=== PATIENT | female | born 1980 | race Caucasian/White ===

== ENCOUNTER 2017-08-24 22:41 | Emergency (ER) | payer OTHER ==
[2017-08-24] MEDS ORDERED: TORAdol 30 mg Injection IM ONE (23:02)
[2017-08-24] MEDS ORDERED: Norflex 60 MG/2 ML IM ONE (23:03)
[2017-08-24] MEDS ORDERED: Norflex 60 MG/2 ML ONE (23:07)
[2017-08-24] MEDS ORDERED: TORAdol 30 mg Injection ONE (23:07)
--- NOTE | 2017-08-24 23:10 | ERPHSYRPT ---
- History of Present Illness Time Seen by Provider: 08/24/17 23:03 Source: patient Exam Limitations: no limitations Patient Subjective Stated Complaint: Neck Pain Triage Nursing Assessment: Pt presents to the ED with complaints of neck pain x2 days. Pt states she was unable to go to work due to pain. Pt states there is nothing that makes pain better or worse. Pt denies other complaints. Pt is A&O x4, no distress noted. Physician History: 36-year-old female came to the emergency room with complaining of right upper neck pain nearby scapular area for last 2 days. Patient states that she has this problem recurrent off and on for last few years. Patient denies any tingling or numbness in her upper extremity as well. Denies any shortness of breath, cough, chills, fever. 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 Timing/Duration: day(s) (2 days) Associated Symptoms: denies symptoms Allergies/Adverse Reactions: nifedipine [From Procardia] Allergy (Intermediate, Verified 08/24/17 22:55) Swelling Home Medications: Alprazolam 0.5 mg [xanAX 0.5 MG] 0.5 mg PO TID 08/24/17 [History] Buspirone HCl 15 mg PO TID 08/24/17 [History] Ergocalciferol (Vitamin D2) [Vitamin D2] 1 tab PO WEEKLY 08/24/17 [History] Levothyroxine Sodium 50 Mcg [Synthroid 50 Mcg] 50 mcg PO DAILY 08/24/17 [ History] Hx Tetanus, Diphtheria Vaccination/Date Given: Yes Hx Influenza Vaccination/Date Given: Yes Hx Pneumococcal Vaccination/Date Given: No Immunizations Up to Date: No - Review of Systems Constitutional: No Fever, No Chills Eyes: No Symptoms Ears, Nose, & Throat: No Symptoms Respiratory: No Cough, No Dyspnea Cardiac: No Chest Pain, No Edema, No Syncope Abdominal/Gastrointestinal: No Abdominal Pain, No Nausea, No Vomiting, No Diarrhea Genitourinary Symptoms: No Dysuria Musculoskeletal: Neck Pain, No Back Pain Skin: No Rash Neurological: No Dizziness, No Focal Weakness, No Sensory Changes Psychological: No Symptoms Endocrine: No Symptoms All Other Systems: Reviewed and Negative - Past Medical History Pertinent Past Medical History: Yes Neurological History: No Pertinent History ENT History: No Pertinent History Cardiac History: No Pertinent History Respiratory History: No Pertinent History Endocrine Medical History: Hyperthyroidism Musculoskeletal History: No Pertinent History GI Medical History: No Pertinent History History: No Pertinent History Psycho-Social History: Anxiety, Depression Female Reproductive Disorders: No Pertinent History - Past Surgical History Past Surgical History: Yes Neuro Surgical History: No Pertinent History Cardiac: No Pertinent History Respiratory: No Pertinent History Gastrointestinal: No Pertinent History Genitourinary: No Pertinent History Musculoskeletal: No Pertinent History Female Surgical History: No Pertinent History Other Surgical History: Partial thyroid removal. - Social History Smoking Status: Never smoker Exposure to second hand smoke: Yes Drug Use: none Patient Lives Alone: No - Female History Hx Last Menstrual Period: 08/09/2017 Hx Now: No - Nursing Vital Signs Nursing Vital Signs: Initial Vital Signs Temperature 97.8 F 08/24/17 22:45 Pulse Rate 62 08/24/17 22:45 Respiratory Rate 16 08/24/17 22:45 Blood Pressure 114/92 08/24/17 22:45 O2 Sat by Pulse Oximetry 99 08/24/17 22:45 Pain Scale Pain Intensity 5 - Physical Exam General Appearance: no apparent distress, alert Eye Exam: PERRL/EOMI, eyes nml inspection Ears, Nose, Throat Exam: normal ENT inspection, TMs normal, pharynx normal, moist mucous membranes Neck Exam: normal inspection, non-tender, supple, full range of motion Respiratory Exam: normal breath sounds, lungs clear, No respiratory distress Cardiovascular Exam: regular rate/rhythm, normal heart sounds, normal peripheral pulses Gastrointestinal/Abdomen Exam: soft, normal bowel sounds, No tenderness, No mass Back Exam: normal inspection, normal range of motion, muscle spasm (upper right back and neck), No CVA tenderness, No vertebral tenderness Extremity Exam: normal inspection, normal range of motion, pelvis stable Neurologic Exam: alert, oriented x 3, cooperative, normal mood/affect, nml cerebellar function, nml station & gait, sensation nml, No motor deficits Skin Exam: normal color, warm, dry, No rash Lymphatic Exam: No adenopathy SpO2: 99 Oxygen Delivery: Room Air - Course Nursing assessment & vital signs reviewed: Yes Ordered Tests: Medication Summary Generic Name Dose Route Start Last Admin Trade Name Freq PRN Reason Stop Dose Admin Orphenadrine Citrate 60 mg 08/24/17 23:03 Norflex 60 Mg/2 Ml IM 08/24/17 23:04 STAT ONE Discontinued Medications Generic Name Dose Route Start Last Admin Trade Name Harsh MOREIRAN Reason Stop Dose Admin Ketorolac Tromethamine 60 mg 08/24/17 23:02 Toradol 30 Mg Injection IM 08/24/17 23:03 STAT ONE - Progress Progress: improved, pain not gone completely Counseled pt/family regarding: diagnosis, need for follow-up - Departure Time of Disposition: 23:06 Departure Disposition: Home Clinical Impression: Cervical back pain with evidence of disc disease Condition: Stable Critical Care Time: No Referrals: MARTY RAY [ACTIVE STAFF] - Instructions: Neck Pain, Cervical Muscle Strain, Cervical Muscle Strain (DC), Chronic Neck Pain (DC), Generalized Neck Pain, Generalized Neck Pain (DC) Additional Instructions: MARILAW was seen on 08/24/17 n the Emergency Room. At that time you were treated for an emergent condition, during your visit Laboratory, Radiology and/ or other procedures may have been ordered. It is very important that you follow- up with your Primary Care Physician within the next 24-48 hours to review your Emergency Room visit and the final results of testing that was ordered. Some test results such as Urine Cultures, Blood Cultures, and other cultures if ordered will not be finalized for 24-48 hours. If you do not have a Primary Care Provider please call the medical records department at [phone] to obtain a copy of your results or you may sign into our patient portal to obtain these results by visiting us @ [email or web address] and completing the following steps: 1. Click on the Patient Portal link 2. Click the Patient Self Enrollment Link to complete the enrollment form and entering your 3. Once the enrollment form is completed you will receive an email with a temporary ID and password at the email address you provided. 4. Next choose a user name and password. Your user name must be at least 4 characters long and your password must be at least 4 characters long. 5. Choose a security question from the list and provide your answer to the question. If you already have signed into the Health Portal you may access your Health Care Information 15/01 by the following steps: 1. Login to our website @ [email or web address] 2. Enter your original user name and password. FAQS The [facility] Health Portal is an online tool that contains your Lab Results, Radiology Reports, Visit History, Discharge Instructions and Health Summary Lab and Radiology Results will not be available for 72 hours on the portal. The Portal is a secure site, passwords are encryted and URLs are re-written so they cannot be copied and pasted. You and authorized family members are the only ones who can access your Portal. Also there is a timeout feature that protects your information if you leave the Portal page open. If you have technical difficulty please use the Contact Us link on the page this will allow you to submit any questions you have regarding the Portal or you may contact the Medical Record Department at [phone]. SPRAINS/STRAINS/CONTUSIONS 1. Rest the affected area as much as possible for the next few days. 2. Apply ice to the affected area for 20-30 minutes at a time, several times a day. 3. If you receive an elastic wrap, wear it only while awake for comfort and support. Re-wrap the elastic wrap if it feels too tight or too loose. 4. If swelling is present, elevate the affected part above the level of the heart for at least 2 to 3 days. 5. Use splints, slings, or crutches as instructed. 6. Watch for severe swelling, coldness, numbness, and discoloration of the fingers and toes. See your family physician or return to the emergency department if any of these are noted. Prescriptions: Etodolac 400 mg [Lodine 400 mg] 400 mg PO BID #20 tablet Orphenadrine Citrate 100 mg [Norflex 100 MG Tablet] 100 mg PO BID #15 tab
[2017-08-24 23:30] VITALS: BP 112/87; PULSE 60; O2SAT 98
== END 2017-08-24 23:30 | disposition home or self-care (01) ==
LOC: ED 22:41
DX: M54.2 Cervicalgia (principal); M50.90 Cervical disc disorder, unspecified, unspecified cervical region
CPT/HCPCS: 96372; 99284; J1885; J2360

== ENCOUNTER 2017-09-04 05:53 | Emergency (ER) | payer OTHER ==
[2017-09-04 06:17] VITALS: BP 116/77; PULSE 80; O2SAT 97
--- NOTE | 2017-09-04 06:35 | ERPHSYRPT ---
- History of Present Illness Time Seen by Provider: 09/04/17 06:20 Source: patient Exam Limitations: no limitations Patient Subjective Stated Complaint: pt states she has had an increase in neck pain this morning and is now radiating down her back Triage Nursing Assessment: pt alert and oriented, answers questions approp. pt ambulatory with steady gait noted, respriations nonlabored with lungs cta. skin pink warm and dry. strength in bilat upper and lower ext wnl. Physician History: FOR THE PAST 6 DAYS PT HAS HAD NECK PAIN RADIATING DOWN THE BACK WITHOUT RECENT TRAUMA. PT WAS PLACED ON CYMBALTA 5 DAYS AGO BUT SHAKES, HAS NAUSEA AND FEELS TIRED AFTER TAKING IT. PT STATES SHE HAS HAD CHRONIC NECK AND BACK PAIN SINCE CHILDHOOD AND HAS HAD NORMAL MRI'S OF THE NECK AND BACK WITHIN THE PAST 5 YEARS. PT DENIES FEVER, CHEST PAIN, SHORTNESS OF AIR, WEAKNESS. Allergies/Adverse Reactions: nifedipine [From Procardia] Allergy (Intermediate, Verified 09/04/17 06:17) Swelling Home Medications: Alprazolam 0.5 mg [xanAX 0.5 MG] 0.5 mg PO TID 08/24/17 [History] Buspirone HCl 15 mg PO TID 08/24/17 [History] Ergocalciferol (Vitamin D2) [Vitamin D2] 1 tab PO WEEKLY 08/24/17 [History] Levothyroxine Sodium 50 Mcg [Synthroid 50 Mcg] 50 mcg PO DAILY 08/24/17 [ History] Duloxetine HCl 30 mg [Cymbalta 30 MG Capsule] 30 mg PO DAILY 09/04/17 [ History] Hx Tetanus, Diphtheria Vaccination/Date Given: Yes Hx Influenza Vaccination/Date Given: Yes Hx Pneumococcal Vaccination/Date Given: No Immunizations Up to Date: Yes - Review of Systems Constitutional: No Fever, No Weakness Respiratory: No Dyspnea Cardiac: No Chest Pain Musculoskeletal: Back Pain, Neck Pain All Other Systems: Reviewed and Negative - Past Medical History Pertinent Past Medical History: Yes Neurological History: No Pertinent History ENT History: No Pertinent History Cardiac History: No Pertinent History Respiratory History: No Pertinent History Endocrine Medical History: Hyperthyroidism Musculoskeletal History: No Pertinent History GI Medical History: No Pertinent History History: No Pertinent History Psycho-Social History: Anxiety, Depression Female Reproductive Disorders: No Pertinent History - Past Surgical History Past Surgical History: Yes Neuro Surgical History: No Pertinent History Cardiac: No Pertinent History Respiratory: No Pertinent History Gastrointestinal: No Pertinent History Genitourinary: No Pertinent History Musculoskeletal: No Pertinent History Female Surgical History: No Pertinent History Other Surgical History: Partial thyroid removal. - Social History Smoking Status: Never smoker Exposure to second hand smoke: Yes Drug Use: none Patient Lives Alone: No - Female History Hx Last Menstrual Period: 1 mos Hx Now: No (tubal) - Nursing Vital Signs Nursing Vital Signs: Initial Vital Signs Temperature 97.5 F 09/04/17 06:09 Pulse Rate 80 09/04/17 06:09 Respiratory Rate 18 09/04/17 06:09 Blood Pressure 116/77 09/04/17 06:09 O2 Sat by Pulse Oximetry 97 09/04/17 06:09 Pain Scale Pain Intensity 8 - Physical Exam General Appearance: alert Eye Exam: PERRL/EOMI Ears, Nose, Throat Exam: TMs normal, pharynx normal, moist mucous membranes Neck Exam: other (MILD PARAVERTEBRAL MUSCLE TENDERNESS) Respiratory Exam: normal breath sounds Cardiovascular Exam: normal heart sounds Gastrointestinal/Abdomen Exam: soft, normal bowel sounds Back Exam: normal range of motion, other (MILD PARAVERTEBRAL MUSCLE TENDERNESS) Extremity Exam: normal inspection, No pedal edema Neurologic Exam: alert, cooperative, sensation nml, No motor deficits, No motor weakness Skin Exam: warm, dry SpO2 Interpretation: normal SpO2: 97 Oxygen Delivery: Room Air - Course Nursing assessment & vital signs reviewed: Yes - Departure Time of Disposition: 06:40 Departure Disposition: Home Clinical Impression: MUSCLE STRAIN OF NECK AND BACK Condition: Stable Critical Care Time: No Instructions: Cervical Muscle Strain (DC) Additional Instructions: FOLLOW UP WITH PRIVATE DOCTOR TOMORROW. STOP CYMBALTA. WEAR SOFT C-COLLAR FOR 2 WEEKS ONLY WHILE AWAKE. Prescriptions: Naproxen [Naprosyn] 500 mg PO [id number] PRN #20 tablet PRN Reason: Pain Cyclobenzaprine HCl [Flexeril] 10 mg PO TID #20 tablet
== END 2017-09-04 06:54 | disposition home or self-care (01) ==
LOC: ED 05:53
DX: S16.1XXA Strain of muscle, fascia and tendon at neck level, initial encounter (principal); S39.012A Strain of muscle, fascia and tendon of lower back, initial encounter
CPT/HCPCS: 99282; 99283; L0120

== ENCOUNTER 2017-10-05 22:07 | Emergency (ER) | payer OTHER ==
[2017-10-05 22:20] VITALS: BP 107/71; PULSE 77; O2SAT 99
[2017-10-05] MEDS ORDERED: Ativan 2 MG/1 ML VIAL IM ONE (22:37)
[2017-10-05] MEDS ORDERED: Ativan 2 MG/1 ML VIAL ONE (22:40)
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
== END 2017-10-05 22:56 | disposition home or self-care (01) ==
LOC: ED 22:07
DX: F43.0 Acute stress reaction (principal)
CPT/HCPCS: 96372; 99281; 99284; J2060

== ENCOUNTER 2017-10-20 09:49 | Emergency (ER) | payer OTHER ==
[2017-10-20] MEDS ORDERED: TORAdol 30 mg Injection IM ONE (10:23)
[2017-10-20] MEDS ORDERED: TORAdol 30 mg Injection ONE (10:27)
--- NOTE | 2017-10-20 10:34 | ERPHSYRPT ---
- History of Present Illness Time Seen by Provider: 10/20/17 10:10 Source: patient Exam Limitations: clinical condition Patient Subjective Stated Complaint: pt reports waking this morning with left shoulder pain, as time progressed the pain moved to her arm and wrist. pt has pain with movement of her neck. pt denies injury. pt reports hx of fibromyalgia and thinks this may be a flare up. Triage Nursing Assessment: pt is aox3, pupils perrl, pt is afebrile, resps easy and non labored, radial pulses are strong and equal. pain to the left shoulder and neck that increases with movement. pt range of motion is within normal limits. pt sensation is intact to bilat upper extremities. no obvious injury or deformity noted. Physician History: PATIENT WITH A HISTORY OF DEPRESSION, SCOLIOSIS, CHRONIC NECK AND BACK PAIN SINCE CHILDHOOD, HAS HAD MULTIPLE MRI'S OF HER BACK AND NECK OVER THE PAST 5 YEARS WHICH HAVE BEEN NORMAL. NOW AWAKENS WITH PAIN BELOW HER LEFT SHOULDER BLADE WORSE UPON MOTION THIS AM. THIS IS HER 4 EMERGENCY ROOM VISIT IN 7 WEEKS AT [facility]. ADMITS TO HAVING MULTIPLE EMERGENCY ROOM VISITS AT [facility] IN THE PAST. DENIES HEADACHE, FEVER, NECK PAIN OR STIFFNESS, NUMBNESS, TINGLING OR WEAKNESS IN EXTREMITIES. Timing/Duration: today Method of Injury: other (DENIES INJURY OR TRAUMA) Quality: sharp Severity of Pain-Max: moderate Severity of Pain-Current: moderate Modifying Factors: Improves With: movement Associated Symptoms: muscle spasms Previous symptoms: same symptoms as today Allergies/Adverse Reactions: nifedipine [From Procardia] Allergy (Intermediate, Verified 10/20/17 10:09) Swelling Home Medications: Alprazolam 0.5 mg [xanAX 0.5 MG] 0.5 mg PO TID 08/24/17 [History] Buspirone HCl 15 mg PO TID 08/24/17 [History] Ergocalciferol (Vitamin D2) [Vitamin D2] 1 tab PO WEEKLY 08/24/17 [History] Levothyroxine Sodium 50 Mcg [Synthroid 50 Mcg] 50 mcg PO DAILY 08/24/17 [ History] Duloxetine HCl 30 mg [Cymbalta 30 MG Capsule] 30 mg PO DAILY 09/04/17 [ History] Hx Tetanus, Diphtheria Vaccination/Date Given: Yes Hx Influenza Vaccination/Date Given: No Hx Pneumococcal Vaccination/Date Given: No Immunizations Up to Date: Yes - Review of Systems Constitutional: No Fever, No Chills Eyes: No Symptoms Ears, Nose, & Throat: No Symptoms Respiratory: No Cough, No Dyspnea Cardiac: No Chest Pain, No Edema, No Syncope Abdominal/Gastrointestinal: No Abdominal Pain, No Nausea, No Vomiting, No Diarrhea Genitourinary Symptoms: No Dysuria Musculoskeletal: No Back Pain, No Neck Pain Skin: No Symptoms, No Rash Neurological: No Dizziness, No Focal Weakness, No Sensory Changes Psychological: No Symptoms Endocrine: No Symptoms All Other Systems: Reviewed and Negative - Past Medical History Pertinent Past Medical History: Yes Neurological History: No Pertinent History ENT History: No Pertinent History Cardiac History: No Pertinent History Respiratory History: No Pertinent History Endocrine Medical History: Diabetes Type II, Hypothyroidism Musculoskeletal History: Fibromyalgia GI Medical History: No Pertinent History History: No Pertinent History Psycho-Social History: Anxiety, Depression Female Reproductive Disorders: No Pertinent History - Past Surgical History Past Surgical History: Yes Neuro Surgical History: No Pertinent History Cardiac: No Pertinent History Respiratory: No Pertinent History Gastrointestinal: No Pertinent History Genitourinary: No Pertinent History Musculoskeletal: No Pertinent History Female Surgical History: No Pertinent History Other Surgical History: Partial thyroid removal. 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 - Social History Smoking Status: Never smoker Exposure to second hand smoke: Yes Drug Use: none Patient Lives Alone: No - Female History Hx Last Menstrual Period: 10/13/17 Hx Now: No - Nursing Vital Signs Nursing Vital Signs: Initial Vital Signs Temperature 97.5 F 10/20/17 09:54 Pulse Rate 70 10/20/17 09:54 Respiratory Rate 18 10/20/17 09:54 Blood Pressure 100/75 10/20/17 09:54 O2 Sat by Pulse Oximetry 100 10/20/17 09:54 Pain Scale Pain Intensity 5 - Physical Exam General Appearance: no apparent distress, alert Eye Exam: PERRL/EOMI, eyes nml inspection Neck Exam: normal inspection, non-tender, supple, full range of motion, No meningismus, No midline tenderness Respiratory Exam: normal breath sounds, lungs clear, No respiratory distress Cardiovascular Exam: regular rate/rhythm, normal heart sounds Gastrointestinal Exam: soft, normal bowel sounds, No tenderness, No mass Back Exam: normal inspection, muscle spasm (TENDERNESS INFERIOR PARASPINAL CERVICAL SPINE C-5 TO C-7, AND PARASPINAL THORACIC TENDERNESS T-1 TO T-6), other (THERE IS TENDERNESS MEDIAL AND INFERIOR TO LEFT SCAPULA, FULL RANGE OF MOTION BILATERAL SHOULDER ASSOCIATED WITH UPPER THORACIC BACK PAIN) Extremity Exam: normal inspection, normal range of motion, No calf tenderness, No pedal edema Peripheral Pulses: carotid (R): 2+, carotid (L): 2+, femoral (R): 2+, femoral (L ): 2+, dorsalis-pedis (R): 2+, dorsalis-pedis (L): 2+ Neurologic Exam: alert, oriented x 3, cooperative, trauma counsellor II-XII nml as tested, normal mood/affect, nml station & gait, sensation nml, No motor deficits Skin Exam: normal color, warm, dry, No rash SpO2 Interpretation: normal SpO2: 100 Oxygen Delivery: Room Air Ordered Tests: Medication Summary Discontinued Medications Generic Name Dose Route Start Last Admin Trade Name Harsh PRN Reason Stop Dose Admin Ketorolac Tromethamine 60 mg 10/20/17 10:23 Toradol 30 Mg Injection IM 10/20/17 10:24 STAT ONE - Progress Progress Note: 10/20/17 10:39 ADMINISTERED TORADOL 60MG IM Counseled pt/family regarding: diagnosis, need for follow-up - Departure Time of Disposition: 10:40 Departure Disposition: Home Clinical Impression: CHRONIC UPPER BACK PAIN, LEFT SCAPULA PAIN Condition: Stable Critical Care Time: No Referrals: JESSICA GONZALES [Primary Care Provider] - Additional Instructions: CONTINUE ALL CURRENT MEDICATIONS FOR PAIN. CONSULT YOUR PRIMARY CARE PROVIDER FOR EVALUATION, TREATMENT, WORK RELEASE, AND REFERRAL TO A PHYSICIAN BENCH HAND MACHINE.
[2017-10-20 11:01] VITALS: BP 109/76; PULSE 88; O2SAT 98
== END 2017-10-20 11:01 | disposition home or self-care (01) ==
LOC: ED 09:49
DX: M25.512 Pain in left shoulder (principal); M54.6 Pain in thoracic spine; Z79.899 Other long term (current) drug therapy
CPT/HCPCS: 96372; 99283; 99284; J1885

== ENCOUNTER 2017-11-29 10:28 | Emergency (ER) | payer OTHER ==
[2017-11-29 10:39] VITALS: PULSE 60
--- NOTE | 2017-11-29 11:02 | ERPHSYRPT ---
- History of Present Illness Time Seen by Provider: 11/29/17 10:55 Source: patient Exam Limitations: no limitations Patient Subjective Stated Complaint: Anxiety, Pain all over. Triage Nursing Assessment: Pt presents to the ED with complaints of anxiety causing her to hurt all over. Pt states onset approximately an hour prior to arrival to the ED. Pt states she began to feel anxious then pain began "all over " after anxiety. Pt states she has been out of daily meds x3 days. Physician History: This is a 36-year-old white female with history of chronic neck and back pain, anxiety, scoliosis who arrives with complaints that she was of having anxiety since yesterday She states that this is resulted in a flareup of her fibromyalgia is having pain in her right lumbar region patient states she takes Xanax 3 times a day she states that she ran out of this several days ago she states that Medicaid "cut her off". And is unable to get in to see her family doctor for more of her medications. Patient him that they really related to back he was given him to get him up with him. Patient denies any fevers nausea vomiting. Really no other complaints. Past medical history includes diabetes (patient states this has resolved after thyroid surgery, hypothyroidism, fibromyalgia, anxiety, depression. 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 Social history denies tobacco alcohol or illicit drug use. Timing/Duration: yesterday (anxiety since yesterday, right low back pain since today) Severity: moderate Modifying Factors: Improves With: nothing Associated Symptoms: other (right low back pain, anxiety), No nausea, No vomiting, No abdominal pain, No shortness of breath, No heartburn, No diaphoresis, No cough, No chills, No chest pain, No fever, No headaches, No loss of appetite, No malaise, No rash, No syncope, No seizure, No weakness Allergies/Adverse Reactions: nifedipine [From Procardia] Allergy (Intermediate, Verified 11/29/17 11:06) Swelling duloxetine [From Cymbalta] Allergy (Mild, Verified 11/29/17 10:42) Muscle Aches Home Medications: Alprazolam 0.5 mg [xanAX 0.5 MG] 0.5 mg PO TID 08/24/17 [History] Buspirone HCl 15 mg PO TID 08/24/17 [History] Levothyroxine Sodium 100 Mcg [Synthroid 100 Mcg] 100 mcg PO DAILY 11/29/17 [History] Tizanidine HCl 4 mg PO TIDPRN PRN 11/29/17 [History] Hx Tetanus, Diphtheria Vaccination/Date Given: Yes Hx Influenza Vaccination/Date Given: No Hx Pneumococcal Vaccination/Date Given: No Immunizations Up to Date: No - Review of Systems Constitutional: No Fever, No Chills Eyes: No Symptoms Ears, Nose, & Throat: No Symptoms Respiratory: No Cough, No Dyspnea Cardiac: No Chest Pain, No Edema, No Syncope Abdominal/Gastrointestinal: No Abdominal Pain, No Nausea, No Vomiting, No Diarrhea Genitourinary Symptoms: No Dysuria Musculoskeletal: Back Pain (right low back pain), No Arthralgias, No Neck Pain, No Deformity, No Fall, No Injury, No Joint Redness, No Joint Pain, No Joint Swelling, No Myalgias Skin: No Rash Neurological: No Dizziness, No Focal Weakness, No Sensory Changes Psychological: Anxiety, No Alcohol Abuse, No Drug Abuse, No Depression, No Suicidal Ideations, No Homicidal Ideations, No Emotional Lability, No Hallucinations, No Memory Loss, No Mood Changes Endocrine: No Symptoms All Other Systems: Reviewed and Negative - Past Medical History Pertinent Past Medical History: Yes Neurological History: No Pertinent History ENT History: No Pertinent History Cardiac History: No Pertinent History Respiratory History: No Pertinent History Endocrine Medical History: Diabetes Type II, Hypothyroidism Musculoskeletal History: Fibromyalgia GI Medical History: No Pertinent History History: No Pertinent History Psycho-Social History: Anxiety, Depression Female Reproductive Disorders: No Pertinent History - Past Surgical History Past Surgical History: Yes Neuro Surgical History: No Pertinent History Cardiac: No Pertinent History Respiratory: No Pertinent History Gastrointestinal: No Pertinent History Genitourinary: No Pertinent History Musculoskeletal: No Pertinent History Female Surgical History: No Pertinent History Other Surgical History: Partial thyroid removal. 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 - Social History Smoking Status: Never smoker Exposure to second hand smoke: No Drug Use: none Patient Lives Alone: No - Female History Hx Last Menstrual Period: 11/01/2017 Hx Now: No - Nursing Vital Signs Nursing Vital Signs: Initial Vital Signs Temperature 98.5 F 11/29/17 10:35 Pulse Rate 60 11/29/17 10:35 Respiratory Rate 16 11/29/17 10:35 Blood Pressure 128/89 11/29/17 10:35 O2 Sat by Pulse Oximetry 100 11/29/17 10:35 Pain Scale Pain Intensity [all over] 9 Pain Intensity 9 - Physical Exam General Appearance: mild distress, other (well-developed well-nourished white female, alert oriented x3) Eye Exam: PERRL/EOMI, eyes nml inspection Ears, Nose, Throat Exam: normal ENT inspection, TMs normal, pharynx normal, moist mucous membranes Neck Exam: normal inspection, non-tender, supple, full range of motion Respiratory Exam: normal breath sounds, lungs clear, No respiratory distress Cardiovascular Exam: regular rate/rhythm, normal heart sounds, normal peripheral pulses Gastrointestinal/Abdomen Exam: soft, normal bowel sounds, No tenderness, No mass Back Exam: other (head filter press tender right low lumbosacral area) Extremity Exam: normal inspection, normal range of motion, pelvis stable Neurologic Exam: alert, oriented x 3, cooperative, lottery clerk II-XII nml as tested, normal mood/affect, nml cerebellar function, nml station & gait, sensation nml, No motor deficits Skin Exam: normal color, warm, dry, No rash SpO2 Interpretation: normal (100%), borderline oxygenation SpO2: 100 Oxygen Delivery: Room Air Ordered Tests: Active Orders 24 hr Category Date Time Status UA W/ MICROSCOPIC Stat Lab 11/29/17 11:01 Completed Medication Summary Discontinued Medications Generic Name Dose Route Start Last Admin Trade Name Gomezq PRN Reason Stop Dose Admin Alprazolam 0.5 mg 11/29/17 11:29 11/29/17 11:32 Xanax 0.5 Mg PO 11/29/17 11:30 0.5 mg STAT ONE Administration Alprazolam Confirm 11/29/17 11:30 Xanax 0.5 Mg Administered 11/29/17 11:31 Dose 0.5 mg .ROUTE .STK-MED ONE Ketorolac Tromethamine 60 mg 11/29/17 11:05 11/29/17 11:10 Toradol 30 Mg Injection IM 11/29/17 11:06 60 mg STAT ONE Administration Ketorolac Tromethamine Confirm 11/29/17 11:09 Toradol 30 Mg Injection Administered 11/29/17 11:10 Dose 60 mg .ROUTE .STK-MED ONE Lab/Rad Data: Laboratory Results 11/29/17 Range/Units 11:01 Ur Collection Type VOID Urine Color YELLOW (YELLOW) Urine Appearance CLEAR (CLEAR) Urine pH 5.0 (5-6) Ur Specific [place] 1.010 (1.005-1.025) Urine Protein NEGATIVE (Negative) Urine Ketones NEGATIVE (NEGATIVE) Urine Blood NEGATIVE (0-5) Carlos Manuel/ul Urine Nitrite NEGATIVE (NEGATIVE) Urine Bilirubin NEGATIVE (NEGATIVE) Urine Urobilinogen NORMAL (0-1) mg/dL Ur Leukocyte Esterase TRACE (NEGATIVE) Urine Microscopic RBC 0-2 (0-2) /HPF Urine Microscopic WBC 0-2 (0-5) /HPF Ur Epithelial Cells FEW (FEW) /HPF Urine Bacteria FEW (NEGATIVE) /HPF Urine Culture Reflexed NO (NO) Urine Glucose NEGATIVE (NEGATIVE) mg/dL Specimen Received 11/29 1100 - Progress Progress: improved Progress Note: 11/29/17 11:32 This is a 36-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 Patient has a history of scoliosis, chronic neck and back pain, diabetes, hypothyroidism, fibromyalgia, anxiety, depression Patient has been on Xanax 0.5 mg for over a year. She states that she lost her Medicaid she states that she has been unable to get into her physicians secondary to being off of Medicaid. She states she's been out of her Xanax for approximately 3 days. On arrival patient the somewhat anxious vitals are stable she has mild pain in her right lumbar region. I asked the nurse contact social media analyst here at the hospital the have apparently been able to improve the patient for Medicaid for 30 days. The patient's nurse had also contacted Dr. Soto's office who writes for the patient Xanax and Dr. Soto has agreed to see her on 14 December she does however want patient to continue calling confirm that she has a Medicaid and confirm her appointment. I have checked patient's urine urine is clean she has no new injuries Will go ahead and prescribe for Xanax 0.5 mg orally 3 times a dayas needed, #30 tablets. The patient's nurses also contacted Dr. Scales's office they verified that they cannot take temporary insurance... I contacted Dr. Colon that she states she would be willing to see the patient for her other problems she will need to contact her office and schedule an appointment. 11/29/17 11:43 this 42 tablets - Departure Time of Disposition: 11:45 Departure Disposition: Home Clinical Impression: Anxiety Benzodiazepine withdrawal Qualifiers: Complication of substance-induced condition: uncomplicated Qualified Code(s): F13.230 - Sedative, hypnotic or anxiolytic dependence with withdrawal, uncomplicated Right low back pain Qualifiers: Chronicity: acute Sciatica presence: without sciatica Qualified Code(s): M54.5 - Low back pain Condition: Fair Critical Care Time: No Referrals: JESSICA GONZALES [Primary Care Provider] - Additional Instructions: Return home.. Xanax 0.5 mg orally 3 times a day as needed for anxiety. Advil [id number] 2-3 tablets orally 3 times a day with food for up to 5 days as needed for pain. Follow-up with Dr. Soto December 14, at 11 AM. Follow-up with your family doctor or Dr. Colon. You will need to contact you Medicaid office. Return for acute distress or for severe symptoms. Prescriptions: Alprazolam [Xanax] 0.5 mg PO TID PRN #30 tablet
[2017-11-29] MEDS ORDERED: TORAdol 30 mg Injection IM ONE (11:05)
[2017-11-29] MEDS ORDERED: TORAdol 30 mg Injection ONE (11:09)
[2017-11-29 11:28] LABS: Appearance CLEAR (CLEAR); Leukocyte Esterase TRACE (NEGATIVE)
[2017-11-29 11:29] LABS: Bilirubin NEGATIVE (NEGATIVE); Blood NEGATIVE Ery/ul (0-5); Glucose NEGATIVE (NEGATIVE); Ketones NEGATIVE (NEGATIVE); Nitrite NEGATIVE (NEGATIVE); Protein,Urine Dip NEGATIVE (Negative); RBC 0-2 /HPF (0-2); Urobilinogen NORMAL mg/dL (0-1); WBC 0-2 /HPF (0-5)
[2017-11-29] MEDS ORDERED: xanAX 0.5 MG PO ONE (11:29)
[2017-11-29 11:30] LABS: Bacteria FEW /HPF (NEGATIVE); Epithelial Cells FEW /HPF (FEW)
[2017-11-29] MEDS ORDERED: xanAX 0.5 MG ONE (11:30)
[2017-11-29 12:01] VITALS: BP 118/74; O2SAT 98
== END 2017-11-29 12:01 | disposition home or self-care (01) ==
LOC: ED 10:28
DX: F41.9 Anxiety disorder, unspecified (principal); F13.239 Sedative, hypnotic or anxiolytic dependence with withdrawal, unspecified; M54.5 Low back pain; Z79.899 Other long term (current) drug therapy
CPT/HCPCS: 81000; 96372; 99283; J1885; A9270-GY

== ENCOUNTER 2018-06-08 18:11 | Emergency (ER) | payer OTHER ==
[2018-06-08] MEDS ORDERED: Norflex 60 MG/2 ML IM ONE (18:40)
[2018-06-08] MEDS ORDERED: TORAdol 30 mg Injection IM ONE (18:40)
--- NOTE | 2018-06-08 18:48 | ERPHSYRPT ---
- History of Present Illness Time Seen by Provider: 06/08/18 18:30 Source: patient Exam Limitations: clinical condition Patient Subjective Stated Complaint: pt reports low middle back pain starting last night. pt states she could not move this morning and could not get up from bed. pt reports pain is slightly improved now. pt reports history of fibromyalgia. Triage Nursing Assessment: pt is aox3, pupils perrl, afebrile, pt resps easy and non labored, radial pulses strong and equal, pt skin pink warm dry. no obvious injury noted to the back, pain localized to the thoracic and lumbar region. pt sensation and ROM intact. pt ambulated to room with no assistance. Physician History: PATIENT WITH A HISTORY OF SCOLIOSIS, FIBROMYALGIA, CHRONIC NECK AND BACK,HAS HAD MULTIPLE MRI OF HIS SPINE WITHOUT PATHOLOGY NOTED. PATIENT DENIES INJURY, TRAUMA OR HEAVY LIFTING. Timing/Duration: today Method of Injury: other (DENIES INJURY) Quality: burning, sharp Back Pain Location: T-spine, lumbar spine Severity of Pain-Max: moderate Severity of Pain-Current: moderate Modifying Factors: Improves With: movement Associated Symptoms: denies symptoms Previous symptoms: no prior history Allergies/Adverse Reactions: nifedipine [From Procardia] Allergy (Intermediate, Verified 11/29/17 11:06) Swelling duloxetine [From Cymbalta] Allergy (Mild, Verified 11/29/17 10:42) Muscle Aches Home Medications: Alprazolam 0.5 mg [xanAX 0.5 MG] 0.5 mg PO TID 08/24/17 [History] Buspirone HCl 15 mg PO TID 08/24/17 [History] Levothyroxine Sodium 100 Mcg [Synthroid 100 Mcg] 100 mcg PO DAILY 11/29/17 [History] Tizanidine HCl 4 mg PO TIDPRN PRN 11/29/17 [History] Gabapentin 300 mg PO TID 06/08/18 [History] Hx Tetanus, Diphtheria Vaccination/Date Given: Yes Hx Influenza Vaccination/Date Given: No Hx Pneumococcal Vaccination/Date Given: No Immunizations Up to Date: Yes - Review of Systems Constitutional: No Fever, No Chills Eyes: No Symptoms Ears, Nose, & Throat: No Symptoms Respiratory: No Symptoms, No Cough, No Dyspnea Cardiac: No Chest Pain, No Edema, No Syncope Abdominal/Gastrointestinal: No Symptoms, No Abdominal Pain, No Nausea, No Vomiting, No Diarrhea Genitourinary Symptoms: Incontinence, No Dysuria Musculoskeletal: Back Pain, No Neck Pain Skin: No Rash Neurological: No Dizziness, No Focal Weakness, No Sensory Changes Psychological: No Symptoms Endocrine: No Symptoms All Other Systems: Reviewed and Negative - Past Medical History Pertinent Past Medical History: Yes Neurological History: No Pertinent History ENT History: No Pertinent History Cardiac History: No Pertinent History Respiratory History: No Pertinent History Endocrine Medical History: Diabetes Type II, Hypothyroidism Musculoskeletal History: Fibromyalgia GI Medical History: No Pertinent History History: No Pertinent History Psycho-Social History: Anxiety, Depression Female Reproductive Disorders: No Pertinent History - Past Surgical History Past Surgical History: Yes Neuro Surgical History: No Pertinent History Cardiac: No Pertinent History Respiratory: No Pertinent History Gastrointestinal: No Pertinent History Genitourinary: No Pertinent History Musculoskeletal: No Pertinent History Female Surgical History: No Pertinent History Other Surgical History: Partial thyroid removal. 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 - Social History Smoking Status: Never smoker Exposure to second hand smoke: No Drug Use: none Patient Lives Alone: No - Female History Hx Last Menstrual Period: 05/14/18 ablation Hx Now: No - Nursing Vital Signs Nursing Vital Signs: Initial Vital Signs Temperature 98.9 F 06/08/18 18:20 Pulse Rate 83 06/08/18 18:20 Respiratory Rate 20 06/08/18 18:20 Blood Pressure 117/80 06/08/18 18:20 O2 Sat by Pulse Oximetry 98 06/08/18 18:20 Pain Scale Pain Intensity [Back] 8 Pain Intensity 8 - Physical Exam General Appearance: mild distress Eye Exam: PERRL/EOMI, eyes nml inspection Neck Exam: normal inspection Respiratory Exam: normal breath sounds Cardiovascular Exam: regular rate/rhythm Back Exam: normal inspection, decreased range of motion, muscle spasm (THERE IS PARASPINAL THORACIC AND LUMBAR TENDERNESS FROM T-8 TO L-1, THERE IS NO CVA TENDERNESS.), point tenderness Peripheral Pulses: carotid (R): 2+, carotid (L): 2+, femoral (R): 2+, femoral (L ): 2+, dorsalis-pedis (R): 2+, dorsalis-pedis (L): 2+ Neurologic Exam: alert, oriented x 3 Skin Exam: normal color, warm SpO2 Interpretation: normal SpO2: 98 Oxygen Delivery: Room Air Ordered Tests: Medication Summary Discontinued Medications Generic Name Dose Route Start Last Admin Trade Name Freq PRN Reason Stop Dose Admin Ketorolac Tromethamine 60 mg 06/08/18 18:40 06/08/18 19:11 Toradol 30 Mg Injection IM 06/08/18 18:41 60 mg STAT ONE Administration Ketorolac Tromethamine Confirm 06/08/18 19:06 Toradol 30 Mg Injection Administered 06/08/18 19:07 Dose 60 mg .ROUTE .STK-MED ONE Orphenadrine Citrate 60 mg 06/08/18 18:40 06/08/18 19:10 Norflex 60 Mg/2 Ml IM 06/08/18 18:41 60 mg STAT ONE Administration Orphenadrine Citrate Confirm 06/08/18 19:07 Norflex 60 Mg/2 Ml Administered 06/08/18 19:08 Dose 60 mg .ROUTE .STK-MED ONE - Progress Progress: improved Progress Note: 06/08/18 19:59 PATIENT ADMINISTERED NORFLEX 60 MG AND TORADOL 60 MG IM WITH MODERATE PAIN RELIEF Counseled pt/family regarding: diagnosis, need for follow-up - Departure Time of Disposition: 20:10 Departure Disposition: Home Clinical Impression: CHRONIC THORACIC LUMBAR PAIN Condition: Stable Critical Care Time: No Referrals: JESSICA GONZALES [Primary Care Provider] - Additional Instructions: BEGIN TORADOL 10 MG EVERY 6 HOURS NEEDED FOR PAIN. OBTAIN A PRIMARY CARE PROVIDER FOR EVALUATION, PHYSICAL THERAPY, AND REFERRAL TO A PAIN CLINIC. Prescriptions: Ketorolac Tromethamine [Toradol] 10 mg PO Q6H PRN PRN #20 tablet PRN Reason: Pain
[2018-06-08] MEDS ORDERED: TORAdol 30 mg Injection ONE (19:06)
[2018-06-08] MEDS ORDERED: Norflex 60 MG/2 ML ONE (19:07)
[2018-06-08 20:19] VITALS: BP 110/77; PULSE 70; O2SAT 97
== END 2018-06-08 20:17 | disposition home or self-care (01) ==
LOC: ED 18:11
DX: M54.6 Pain in thoracic spine (principal); M54.5 Low back pain; Z79.899 Other long term (current) drug therapy
CPT/HCPCS: 96372; 99284; J1885; J2360

== ENCOUNTER 2021-01-09 17:01 | Emergency (ER) | payer OTHER ==
[2021-01-09 17:20] VITALS: BP 101/68
--- NOTE | 2021-01-09 17:42 | ERPHSYRPT ---
- History of Present Illness Time Seen by Provider: 01/09/21 17:10 Historian: patient Exam Limitations: no limitations Patient Subjective Stated Complaint: abd pain Triage Nursing Assessment: pt to ED c/o gross abd pain for unknown time, multiple months. recently switched PCPs but this pain has not yet been identified. pt states pain is bilateral on her sides as well as strong in L flank area. rates 4/10 currently, which has progressively gotten stronger over last months. denies NVD. Physician History: 40 years old female presented in the ER with chief complaint of bilateral flank pain for quite some time and lately getting worse especially on the left side, intermittent, sharp cramping without any significant aggravating or relieving factors, sometimes radiation to the right lateral left groin without any urinary symptoms. Patient does report passing kidney stones few weeks ago. No fever chills cough or shortness of breath reported. Denies any nausea or vomiting associated with it. Patient is worried about getting another kidney stone. Timing/Duration: week(s), intermittent, gradual onset, worse Activities at Onset: rest Quality: cramping, sharpness Abdominal Pain Onset Location: flank Pain Radiation: groin Severity of Pain-Max: moderate Severity of Pain-Current: mild Modifying Factors: Improves With: nothing Associated Symptoms: denies symptoms Previous symptoms: same symptoms as today Allergies/Adverse Reactions: nifedipine [From Procardia] Allergy (Intermediate, Verified 01/09/21 17:21) Swelling duloxetine [From Cymbalta] Allergy (Mild, Verified 01/09/21 17:21) Muscle Aches gabapentin Adverse Reaction (Mild, Verified 01/09/21 17:21) Home Medications: Buspirone HCl 15 mg PO TID 08/24/17 [History] Levothyroxine Sodium 100 Mcg [Synthroid 100 Mcg] 100 mcg PO DAILY 11/29/17 [History] Hx Tetanus, Diphtheria Vaccination/Date Given: Yes Hx Influenza Vaccination/Date Given: No Hx Pneumococcal Vaccination/Date Given: No Immunizations Up to Date: No Travel Risk - International Travel Have you traveled outside of the country in past 3 weeks: No - Coronavirus Screening Are you exhibiting any of the following symptoms?: No Close contact with a COVID-19 positive Pt in past 14-21 Days: No - Vaccine Status Have you recieved a Covid-19 vaccination: No - Review of Systems Constitutional: No Symptoms Eyes: No Symptoms Ears, Nose, & Throat: No Symptoms Respiratory: No Symptoms Cardiac: No Symptoms Abdominal/Gastrointestinal: Abdominal Pain Genitourinary Symptoms: No Symptoms Musculoskeletal: Back Pain Skin: No Symptoms Neurological: No Symptoms Psychological: No Symptoms Endocrine: No Symptoms Hematologic/Lymphatic: No Symptoms - Past Medical History Pertinent Past Medical History: Yes Neurological History: No Pertinent History ENT History: No Pertinent History Cardiac History: No Pertinent History Respiratory History: No Pertinent History Endocrine Medical History: Hypoglycemia, Hypothyroidism Musculoskeletal History: Fibromyalgia GI Medical History: No Pertinent History History: No Pertinent History Psycho-Social History: Anxiety, Depression Female Reproductive Disorders: No Pertinent History Other Medical History: attempting to rule out MS as of 12/2020 - Past Surgical History Past Surgical History: Yes Neuro Surgical History: No Pertinent History Cardiac: No Pertinent History Respiratory: No Pertinent History Gastrointestinal: No Pertinent History Genitourinary: No Pertinent History Musculoskeletal: No Pertinent History Female Surgical History: Dilation & Curettage, Tubal Ligation, Other Other Surgical History: Partial thyroid removal. 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 uterine ablasion - Social History Smoking Status: Never smoker Exposure to second hand smoke: No Drug Use: none Patient Lives Alone: No - Female History Hx Last Menstrual Period: 2 weeks ago Hx Now: No (ablasion) - Nursing Vital Signs Nursing Vital Signs: Initial Vital Signs Temperature 97.7 F 01/09/21 17:09 Pulse Rate 71 01/09/21 17:09 Respiratory Rate 16 01/09/21 17:09 Blood Pressure 101/68 01/09/21 17:09 O2 Sat by Pulse Oximetry 98 01/09/21 17:09 Pain Scale Pain Intensity 4 - Physical Exam General Appearance: no apparent distress, alert, anxiety Eye Exam: PERRL/EOMI Ears, Nose, Throat Exam: normal ENT inspection, pharynx normal Neck Exam: normal inspection, supple, full range of motion Respiratory Exam: normal breath sounds, lungs clear Cardiovascular Exam: regular rate/rhythm, normal heart sounds Gastrointestinal/Abdomen Exam: soft, normal bowel sounds, tenderness (Left flank) Back Exam: normal inspection, normal range of motion, CVA tenderness (Left), No vertebral tenderness Extremity Exam: normal inspection, normal range of motion, pelvis stable Neurologic Exam: alert, oriented x 3, cooperative Skin Exam: normal color SpO2 Interpretation: normal SpO2: 98 O2 Delivery: Room Air Ordered Tests: Active Orders 24 hr Category Date Time Status IV Insertion STAT Care 01/09/21 17:38 Active NPO (ED) STAT Care 01/09/21 17:38 Active ABDOMEN AND PELVIS W/0 CONTRAS [CT] Stat Exams 01/09/21 17:39 Taken CBC W DIFF Stat Lab 01/09/21 17:50 Completed CMP Stat Lab 01/09/21 17:50 Completed LIPASE Stat Lab 01/09/21 17:50 Completed UA W/RFX UR CULTURE Stat Lab 01/09/21 17:44 Completed Medication Summary Discontinued Medications Generic Name Dose Route Start Last Admin Trade Name Freq PRN Reason Stop Dose Admin Morphine Sulfate 4 mg 01/09/21 18:23 01/09/21 18:53 Morphine Sulfate 4 Mg Inj IV 01/09/21 18:24 4 mg STAT ONE Administration Morphine Sulfate Confirm 01/09/21 18:52 Morphine Sulfate 4 Mg Inj Administered 01/09/21 18:53 Dose 4 mg .ROUTE .STK-MED ONE Ondansetron HCl 4 mg 01/09/21 18:23 01/09/21 18:54 Zofran 4 Mg/2 Ml Vial IV 01/09/21 18:24 4 mg STAT ONE Administration Ondansetron HCl Confirm 01/09/21 18:52 Zofran Odt 4 Mg Administered 01/09/21 18:53 Dose 4 mg .ROUTE .STK-MED ONE Lab/Rad Data: Laboratory Result Diagrams 01/09/21 17:50 01/09/21 17:50 Laboratory Results 01/09/21 01/09/21 01/09/21 Range/Units 17:50 17:50 17:44 WBC 7.0 (4.0-10.5) K/mm3 RBC 3.89 L (4.1-5.4) M/mm3 Hgb 10.6 L (12.0-16.0) gm/dl Hct 33.9 L (35-47) % MCV 87.1 (78-100) fl MCH 27.2 (26-32) pg MCHC 31.3 L (32-36) g/dl RDW 18.5 H (11.5-14.0) % Plt Count 198 (150-450) K/mm3 MPV 10.6 (7.5-11.0) fl Gran % 51.6 (36.0-66.0) % Eos # (Auto) 0.31 (0-0.5) Absolute Lymphs (auto) 2.32 (1.0-4.6) Absolute Monos (auto) 0.71 (0.0-1.3) Lymphocytes % 33.3 (24.0-44.0) % Monocytes % 10.2 (0.0-12.0) % Eosinophils % 4.5 (0.00-5.0) % Basophils % 0.4 (0.0-0.4) % Absolute Granulocytes 3.59 (1.4-6.9) Basophils # 0.03 (0-0.4) Sodium 137 (137-145) mmol/L Potassium 4.1 (3.5-5.1) mmol/L Chloride 104 (98-107) mmol/L Carbon Dioxide 22 (22-30) mmol/L Anion Gap 15.4 H (5-15) MEQ/L BUN 9 (7-17) mg/dL Creatinine 0.93 (0.52-1.04) mg/dL Estimated GFR > 60.0 ML/MIN Glucose 89 (74-106) mg/dL Calcium 8.9 (8.4-10.2) mg/dL Total Bilirubin 0.20 (0.2-1.3) mg/dL AST 24 (14-36) U/L ALT 13 (0-35) U/L Alkaline Phosphatase 61 (38-126) U/L Serum Total Protein 6.8 (6.3-8.2) g/dL Albumin 4.1 (3.5-5.0) g/dL Lipase 80 (23-300) U/L Urine Color JERALD (YELLOW) Urine Appearance SLIGHTLY CLOUDY (CLEAR) Urine pH 5.0 (5-6) Ur Specific [place] 1.025 (1.005-1.025) Urine Protein NEGATIVE (Negative) Urine Ketones NEGATIVE (NEGATIVE) Urine Blood NEGATIVE (0-5) Carlos Manuel/ul Urine Nitrite NEGATIVE (NEGATIVE) Urine Bilirubin NEGATIVE (NEGATIVE) Urine Urobilinogen NEGATIVE (0-1) mg/dL Ur Leukocyte Esterase NEGATIVE (NEGATIVE) Urine WBC (Auto) NONE (0-5) /HPF Urine RBC (Auto) NONE (0-2) /HPF U Epithel Cells (Auto) RARE (FEW) /HPF Urine Bacteria (Auto) NONE (NEGATIVE) /HPF Urine Mucus (Auto) MODERATE (NEGATIVE) /HPF Urine Culture Reflexed NO (NO) Urine Glucose NEGATIVE (NEGATIVE) mg/dL - Progress Progress: improved, re-examined Progress Note: 01/09/21 19:10 She is given morphine for symptomatic relief, on reevaluation feeling better. Normal white count, grossly unremarkable chemistries no UTI. CT negative for any acute abdominal pelvic findings. I believe this could be musculoskeletal. Recommended taking Tylenol ibuprofen and outpatient follow-up. Discussed signs symptoms of worsening needing return to ER which she seems understanding. Stable for discharge. Counseled pt/family regarding: lab results, diagnosis, need for follow-up, rad results - Departure Departure Disposition: Home Clinical Impression: Flank pain Condition: Stable Critical Care Time: No Referrals: JESSICA GONZALES [NON-STAFF PHY W/O PRIVILEGES] - Follow Up with PCP/3 days Instructions: Acute Abdomen (Belly Pain), Adult (DC) Additional Instructions: Drink plenty of fluids. Take Tylenol/ibuprofen as needed. Return to ER for worsening pain, or if develop nausea vomiting fever chills or difficulty urination. Prescriptions: Ibuprofen 600 mg PO Q6HPRN PRN 10 Days #20 tablet PRN Reason: Pain
[2021-01-09 17:59] LABS: Absolute Neutrophil Ct (ANC) 3.59 (1.4-6.9); BASOPHIL % 0.4 % (0.0-0.4); Basophil (Absolute #) 0.03 (0-0.4); Eosinophil % 4.5 % (0.00-5.0); Eosinophil (Absolute #) 0.31 (0-0.5); Hematocrit 33.9 % (35-47); Hemoglobin 10.6 gm/dl (12.0-16.0); Lymphocyte (Absolute #) 2.32 (1.0-4.6); Lymphocytes % 33.3 % (24.0-44.0); Mean Cell Volume 87.1 fl (78-100); Mean Corpuscular Hemoglobin 27.2 pg (26-32); Mean Corpuscular Hgb Concent. 31.3 g/dl (32-36); Mean Platelet Volume 10.6 fl (7.5-11.0); Monocyte (Absolute #) 0.71 (0.0-1.3); Monocytes % 10.2 % (0.0-12.0); Neutrophil % 51.6 % (36.0-66.0); Platelet Count 198 K/mm3 (150-450); Red Blood Count 3.89 M/mm3 (4.1-5.4); Red Cell Distribution Width 18.5 % (11.5-14.0)
[2021-01-09 18:01] LABS: Appearance SLIGHTLY CLOUDY (CLEAR); Bilirubin NEGATIVE (NEGATIVE); Blood NEGATIVE Ery/ul (0-5); Epithelial Cells RARE /HPF (FEW); Glucose NEGATIVE (NEGATIVE); Ketones NEGATIVE (NEGATIVE); Leukocyte Esterase NEGATIVE (NEGATIVE); Mucus MODERATE /HPF (NEGATIVE); Nitrite NEGATIVE (NEGATIVE); Protein,Urine Dip NEGATIVE (Negative); Specific Gravity 1.025 (1.005-1.025); Urobilinogen NEGATIVE mg/dL (0-1)
[2021-01-09 18:20] LABS: ALBUMIN 4.1 g/dL (3.5-5.0); ALKALINE PHOSPHATASE 61 U/L (38-126); ANION GAP 15.4 MEQ/L (5-15); BLOOD UREA NITROGEN 9 mg/dL (7-17); CHLORIDE 104 mmol/L (98-107); Calcium 8.9 mg/dL (8.4-10.2); Carbon Dioxide 22 mmol/L (22-30); Creatinine 1 0.93 mg/dL (0.52-1.04); EST GLOMERULAR FILTRATION RATE > 60.0 ML/MIN; Glucose 89 mg/dL (74-106); LIPASE 80 U/L (23-300); Potassium 4.1 mmol/L (3.5-5.1); SGOT/AST 24 U/L (14-36); SGPT/ALT 13 U/L (0-35); SODIUM 137 mmol/L (137-145); Total Protein 6.8 g/dL (6.3-8.2)
[2021-01-09] MEDS ORDERED: MORPHINE SULFATE 4 MG INJ IV ONE (18:23)
[2021-01-09] MEDS ORDERED: Zofran 4 MG/2 ML VIAL IV ONE (18:23)
[2021-01-09] MEDS ORDERED: MORPHINE SULFATE 4 MG INJ ONE (18:52)
[2021-01-09] MEDS ORDERED: ZOFRAN ODT 4 MG ONE (18:52)
[2021-01-09 19:02] VITALS: PULSE 61
[2021-01-09 19:12] VITALS: O2SAT 98
--- NOTE | 2021-01-10 08:43 | XRAY ---
Indication: Left flank pain. Multiple contiguous axial images obtained through the abdomen and pelvis without contrast. Comparison: None. Lung bases demonstrate minimal dependent atelectasis. No infiltrate or effusion. Heart not enlarged. Stomach distended with food/fluid. Noncontrasted stomach and bowel loops nonobstructed. Appendix not seen. Gallbladder contracted without gallstones. No free fluid/air. Uterus demonstrates 1.5 cm fundal calcified fibroid. Remaining liver, gallbladder, pancreas, spleen, adrenal glands, kidneys, ureters, bladder, uterus, and aorta are unremarkable for noncontrast exam. Osseous structures intact. No ventral or inguinal hernias. Impression: 1. Uterine calcified fibroid. 2. Remaining CT abdomen/pelvis without contrast exam is negative. Comment: Preliminary interpretation was made by [facility]. No critical discrepancy.
== END 2021-01-09 19:17 | disposition home or self-care (01) ==
LOC: ED 17:01
DX: R10.9 Unspecified abdominal pain (principal)
CPT/HCPCS: 36415; 74176; 80053; 81001; 83690; 85025; 99284; J2270; J2405; Q0162